=== PATIENT | female | born 1955 | race Caucasian/White ===

== ENCOUNTER → 2023-06-10 08:40 | Outpatient (REF) | payer MEDICARE, OTHER, SELFPAY | LOC: RAD 08:40 | PROVIDERS: ATTENDING PHYSICIAN Obstetrics & Gynecology Gynecology; FAMILY PHYSICIAN Internal Medicine | DX: M85.89 Other specified disorders of bone density and structure, multiple sites (principal) | CPT/HCPCS: 77080 ==

== ENCOUNTER → 2023-07-16 07:33 | Outpatient (REF) | payer MEDICARE, OTHER, SELFPAY | LOC: RAD 07:33 | PROVIDERS: ATTENDING PHYSICIAN Internal Medicine | DX: E78.2 Mixed hyperlipidemia (principal) | CPT/HCPCS: 75571 ==

== ENCOUNTER → 2023-10-08 06:35 | Outpatient (REF) | payer MEDICARE, OTHER, SELFPAY | LOC: WDC 06:35 | PROVIDERS: ATTENDING PHYSICIAN Obstetrics & Gynecology Gynecology; FAMILY PHYSICIAN Internal Medicine | DX: Z12.31 Encounter for screening mammogram for malignant neoplasm of breast (principal); Z80.3 Family history of malignant neoplasm of breast | CPT/HCPCS: 77063; 77067 ==

== ENCOUNTER → 2024-10-10 07:33 | Outpatient (REF) | payer MEDICARE, OTHER, SELFPAY | LOC: WDC 07:33 | PROVIDERS: ATTENDING PHYSICIAN Obstetrics & Gynecology Gynecology; FAMILY PHYSICIAN Internal Medicine | DX: Z12.31 Encounter for screening mammogram for malignant neoplasm of breast (principal); R31.29 Other microscopic hematuria | CPT/HCPCS: 76770; 77063; 77067 ==

== ENCOUNTER → 2024-10-14 12:17 | Outpatient (REF) | payer MEDICARE, OTHER, SELFPAY | LOC: HWRAD 12:17 | PROVIDERS: ATTENDING PHYSICIAN Specialist; FAMILY PHYSICIAN Internal Medicine | DX: R31.9 Hematuria, unspecified (principal) | CPT/HCPCS: 74176 ==

== ENCOUNTER 2024-11-11 11:59 | Outpatient (RCR) | payer MEDICARE, OTHER, SELFPAY | END 2024-11-11 23:59 | disposition home or self-care (01) | LOC: RPT 11:59 | PROVIDERS: ATTENDING PHYSICIAN Internal Medicine | DX: M25.562 Pain in left knee (principal); Z73.6 Limitation of activities due to disability; R26.89 Other abnormalities of gait and mobility; M17.0 Bilateral primary osteoarthritis of knee; X58.XXXD Exposure to other specified factors, subsequent encounter | CPT/HCPCS: 97110; 97140; 97161; 97530 ==

== ENCOUNTER → 2024-12-14 12:50 | Outpatient (REF) | payer MEDICARE, OTHER, SELFPAY | LOC: WDC 12:50 | PROVIDERS: ATTENDING PHYSICIAN Obstetrics & Gynecology Gynecology | DX: R92.2 Inconclusive mammogram (principal); Z80.3 Family history of malignant neoplasm of breast | CPT/HCPCS: 76641 ==

== ENCOUNTER 2024-12-21 10:06 | Outpatient (RCR) | payer MEDICARE, OTHER, SELFPAY | END 2024-12-22 06:16 | disposition home or self-care (01) | LOC: RPT 10:06 | PROVIDERS: ATTENDING PHYSICIAN Internal Medicine | DX: M25.562 Pain in left knee (principal); Z73.6 Limitation of activities due to disability; R26.89 Other abnormalities of gait and mobility; M17.0 Bilateral primary osteoarthritis of knee; X58.XXXD Exposure to other specified factors, subsequent encounter | CPT/HCPCS: 97110; 97112; 97140 ==